=== PATIENT | male | born 1985 | race Caucasian/White ===

== ENCOUNTER 2018-02-24 14:46 | Emergency (ER) | payer MEDICAID ==
[~2018-02-24] VITALS: Ht 157.5 cm; Wt 68.5 kg
[2018-02-24 14:55] VITALS: BP 130/88
--- NOTE | 2018-02-24 15:02 | NUR ---
PT C/O UPPER BACK PAIN S/P [facility] YESTERDAY. AMBULATES WITH STEADY GAIT, NO DEFORMITY, BRUISING, OR SWELLING OBSERVED. DENIES LOC, DIZZINESS, OR NECK PAIN.
[2018-02-24] MEDS ORDERED: IBUPROFEN 400 MG TAB PO ONE (15:45)
[2018-02-24 16:46] VITALS: BP 125/89
== END 2018-02-24 16:46 | disposition home or self-care (01) ==
LOC: MED 14:46
DX: S20.222A Contusion of left back wall of thorax, initial encounter (principal); R03.0 Elevated blood-pressure reading, without diagnosis of hypertension; W18.39XA Other fall on same level, initial encounter; Y93.89 Activity, other specified; Y99.8 Other external cause status; Y92.89 Other specified places as the place of occurrence of the external cause
CPT/HCPCS: 73010; 99284